=== PATIENT | male | born 1965 | race Caucasian/White ===

== ENCOUNTER 2023-04-02 12:29 | Emergency (ER) | payer BC, SELFPAY ==
[2023-04-02] VITALS (8 sets, daily range): BP systolic 134–146; BP diastolic 85–88; PULSE 74–88; RESP 16; TEMP 36.6; O2SAT 96–99; BMI 26.4
--- NOTE | 2023-04-02 13:37 | DI.RAD.S_ITS ---
PROCEDURE: XR CHEST 1V INDICATIONS: Shortness of breath TECHNIQUE: One view of the chest was acquired. COMPARISON: None. FINDINGS: Surgical changes and devices: None. Lungs and pleura: 2.1 centimeter masslike opacity in the left infrahilar lung. No pleural effusions or pneumothorax. Mediastinum: Mediastinal contours appear normal. Heart size is normal. Bones and chest wall: No suspicious bony lesions. Overlying soft tissues appear unremarkable. IMPRESSION: Small focal opacity in the left infrahilar lung which could represent pneumonia or neoplastic process. Recommend follow-up chest x-ray in 30 days following appropriate therapy for pneumonia to exclude malignancy. Dictated by: Nida Pratt MD, PhD on 04/02/2023 at 13:51 Approved by: Nida Pratt MD, PhD on 04/02/2023 at 13:53
[2023-04-02 14:15] LABS: Add Manual Diff / Slide Review NO; Basophils Absolute Auto 100 /uL (0-100); Basophils Percent Auto 0.9 % (0-2); Eosinophils Absolute Auto 300 /uL (0-450); Eosinophils Percent Auto 2.9 % (2-4); Hematocrit 38.2 % (41-53); Hemoglobin 12.9 g/dL (13.5-17.5); Lymphocytes Absolute Auto 2500 /uL (1100-4500); Lymphocytes Percent Auto 25.6 % (25-40); Mean Corpuscular HGB Conc 33.7 % (30-36); Mean Corpuscular Hemoglobin 28.6 PG (26-34); Monocytes Absolute Auto 1200 /uL (0-900); Monocytes Percent Auto 12.1 % (3-14); Neutrophils Absolute Auto 5600 /uL (1500-7000); Neutrophils Percent Auto 58.5 % (50-75); Platelet Count 360 X10^3/uL (150-400); White Blood Cell Count 9.6 X10^3/uL (4.5-11.0)
[2023-04-02 14:25] LABS: INR 1.2 (0.9-1.3); Prothrombin Time 13.9 SECONDS (10.1-12.7)
[2023-04-02 14:26] LABS: D Dimer 657 ng/ml (<500)
[2023-04-02 14:29] LABS: Alanine Aminotransferase 34 IU/L (<50); Alkaline Phosphatase 65 U/L (38-126); Aspartate Aminotransferase 43 IU/L (17-59); BUN Creatinine Ratio 17.4 (6-22); Bilirubin Total 0.5 mg/dL (0.2-1.3); Blood Urea Nitrogen 12 mg/dL (9-20); Calcium 8.8 mg/dL (8.4-10.2); Carbon Dioxide 23 mmol/L (22-32); Chloride 104 mmol/L (98-107); Estimated Glomerular Filt Rate > 60 mL/min (>60); Globulin 4.2 g/dL (1.7-4.1); Glucose 110 mg/dL (70-100); Potassium 4.3 mmol/L (3.4-5.1); Sodium 134 mmol/L (137-145); Total Protein 8.2 g/dL (6.3-8.2)
[2023-04-02 14:31] LABS: HEMOLYSIS 79 (0-50)
[2023-04-02 14:41] LABS: NT-proBNP (BNP-Adult 18+) 89 pg/mL (<125); Troponin I < 0.012 ng/mL (0.01-0.034)
--- NOTE | 2023-04-02 16:44 | ED_ITS ---
HPI - SOB/Dyspnea General Chief Complaint: Shortness of Breath/Dyspnea Stated Complaint: [facility]CT [facility]/SINUS INFEC Time Seen by Provider: 04/02/23 16:34 Source: patient Mode of arrival: Ambulatory Limitations: no limitations History of Present Illness HPI Narrative: Patient here for shortness of breath coughing fever chills aches sinus pressure for the past 5 weeks. Patient seen by a clinic on [place] and had x-ray done and recommended have follow up CT of the chest. Patient was placed on 3 da ys Levaquin without relief. Patient has significant history of sinus disease, he is from [place], has had procedures done by ENT back home. He has been here for 5 weeks. He is getting ready to go home to follow up with his ENT. Patient in no distress. Related Data Previous Rx's Medication Instructions Recorded methylprednisolone 4 mg tablets in See Rx Instructions PO .COMPLEX 04/02/23 a dose pack (Medrol (Jeff)) #21 ea Allergies Allergy/AdvReac Type Severity Reaction Status Date / Time No Known Drug Allergies Allergy Verified 04/02/23 13:28 Review of Systems Review of Systems Narrative: GENERAL: Positive chills, negative fatigue, malaise, positive fever, sweats. HEENT: Positive sinus pain, negative ear pain, sore throat RESPIRATORY: Positive dyspnea, cough CARDIOVASCULAR: negative chest pain, palpitations GASTROINTESTINAL: negative nausea, vomiting, abdominal pain : negative dysuria, frequency, hematuria MUSCULOSKELETAL: negative muscle or bony pain SKIN: negative rash, skin lesions NEUROLOGIC: negative weakness, numbness ROS Unobtainable: All systems reviewed & are unremarkable except as noted in HPI and below Patient History Social History Smoking Status: Never smoker Smoking Status: Never smoker alcohol intake frequency: holidays/special occasions only Substance Use Type: does not use Exam Narrative Exam Narrative: GENERAL: in no distress, not toxic not dyspneic HEAD: Normocephalic. EYES: Pupils equal round ENT: Mucous membranes moist. Mild tenderness to bilateral maxillary sinuses NECK: Trachea midline. CARDIOVASCULAR: Regular rate and rhythm without murmurs RESPIRATORY: Clear to auscultation. Breath sounds equal bilaterally. No wheezes, rales, or rhonchi. GASTROINTESTINAL: Abdomen soft, non-tender EXTREMITIES: No gross deformities. BACK: No flank tenderness. NEURO: AOx4. SKIN: Warm and dry PSYCH: Not anxious, is cooperative Initial Vital Signs Initial Vital Signs: Vital Signs Temperature 98 F 04/02/23 13:28 Pulse Rate 88 04/02/23 13:28 Respiratory Rate 16 04/02/23 13:28 Blood Pressure 146/85 H 04/02/23 13:28 Pulse Oximetry 98 04/02/23 13:28 Oxygen Delivery Method Room Air 04/02/23 13:28 Course Orders Ordered: Discontinued Medications Albuterol (Albuterol 2.5 Mg/3 Ml Neb (Adult)) 2.5 mg INH NOW ONE Stop: 04/02/23 17:52 Last Admin: 04/02/23 17:58 Dose: 2.5 mg Documented By: STEFANY Sodium Chloride (Normal Saline 0.9%) 500 mls @ 1,000 mls/hr IV BOLUS ONE Stop: 04/02/23 17:12 Last Infusion: 04/02/23 17:33 Dose: 0 mls/hr Documented By: Admin: 04/02/23 17:00 Dose: 1,000 mls/hr Documented By: DEBBY Methylprednisolone (Methylprednisolone 125 Mg/2 Ml Vial) 125 mg IV NOW ONE Stop: 04/02/23 17:59 Last Admin: 04/02/23 18:21 Dose: 125 mg Documented By: BHUMIKA Vital Signs Vital signs: Vital Signs - 8 hr 04/02/23 13:28 04/02/23 16:59 04/02/23 17:00 Temperature 98 F Pulse Rate 88 76 76 Respiratory Rate 16 Blood Pressure 146/85 H Pulse Oximetry 98 98 99 Oxygen Delivery Method Room Air 04/02/23 17:30 Temperature Pulse Rate 75 Respiratory Rate Blood Pressure 134/88 Pulse Oximetry 97 Oxygen Delivery Method MDM - SOB/Dyspnea Lab Data 04/02/23 14:00 04/02/23 14:00 Labs: Lab Results 04/02/23 04/02/23 04/02/23 Range/Units 14:00 14:00 14:00 WBC 9.6 (4.5-11.0) X10^3/uL RBC 4.50 (4.5-5.9) X10^6/uL Hgb 12.9 L (13.5-17.5) g/dL Hct 38.2 L (41-53) % MCV 85.0 (80-100) fL MCH 28.6 (26-34) PG MCHC 33.7 (30-36) % RDW 13.0 (11.6-14.8) % Plt Count 360 (150-400) X10^3/uL Neut % (Auto) 58.5 (50-75) % Lymph % (Auto) 25.6 (25-40) % Rowan % (Auto) 12.1 (3-14) % Eos % (Auto) 2.9 (2-4) % Baso % (Auto) 0.9 (0-2) % Neut # (Auto) 5600 (6472-5139) /uL Lymph # (Auto) 2500 (4073-3467) /uL Rowan # (Auto) 1200 H (0-900) /uL Eos # (Auto) 300 (0-450) /uL Baso # (Auto) 100 (0-100) /uL PT 13.9 H (10.1-12.7) SECONDS INR 1.2 (0.9-1.3) D-Dimer 657 H (<500) ng/ml Sodium 134 L (137-145) mmol/L Potassium 4.3 (3.4-5.1) mmol/L Chloride 104 (98-107) mmol/L Carbon Dioxide 23 (22-32) mmol/L BUN 12 (9-20) mg/dL Creatinine 0.69 (0.66-1.25) mg/dL Estimated GFR > 60 (>60) mL/min BUN/Creatinine Ratio 17.4 (6-22) Glucose 110 H (70-100) mg/dL Lactate (0.7-2.1) mmol/L Calcium 8.8 (8.4-10.2) mg/dL Total Bilirubin 0.5 (0.2-1.3) mg/dL AST 43 (17-59) IU/L ALT 34 (<50) IU/L Alkaline Phosphatase 65 (38-126) U/L Troponin I < 0.012 (0.01-0.034) ng/mL NT-Pro-B Natriuret Pep 89 (<125) pg/mL Total Protein 8.2 (6.3-8.2) g/dL Albumin 4.0 (3.5-5.0) g/dL Globulin 4.2 H (1.7-4.1) g/dL Albumin/Globulin Ratio 1.0 (1.0-2.8) Chlamy pneumoniae PCR (Not Detect) Adenovirus (PCR) (Not Detect) B. pertussis DNA (PCR) (Not Detecte) B.parapertussis DNA PCR (Not Detecte) Coronavirus OC43 (PCR) (Not Detect) Coronavirus HKU1 (PCR) (Not Detect) Coronavirus 229E (PCR) (Not Detect) SARS-CoV-2 (PCR) (Not Detecte) Coronavirus NL63 (PCR) (Not Detect) Human Metapneumovir PCR (Not Detect) Influenza Type A (PCR) (Not Detect) Influenza Type B (PCR) (Not Detect) M. pneumoniae (PCR) (Not Detect) Parainfluenza 1 (PCR) (Not Detect) Parainfluenza 2 (PCR) (Not Detect) Parainfluenza 3 (PCR) (Not Detect) Parainfluenza 4 (PCR) (Not Detect) RSV (PCR) (Not Detect) Entero/Rhino (PCR) (Not Detect) 04/02/23 04/02/23 Range/Units 14:00 17:02 WBC (4.5-11.0) X10^3/uL RBC (4.5-5.9) X10^6/uL Hgb (13.5-17.5) g/dL Hct (41-53) % MCV (80-100) fL MCH (26-34) PG MCHC (30-36) % RDW (11.6-14.8) % Plt Count (150-400) X10^3/uL Neut % (Auto) (50-75) % Lymph % (Auto) (25-40) % Rowan % (Auto) (3-14) % Eos % (Auto) (2-4) % Baso % (Auto) (0-2) % Neut # (Auto) (4574-5345) /uL Lymph # (Auto) (8186-3148) /uL Rowan # (Auto) (0-900) /uL Eos # (Auto) (0-450) /uL Baso # (Auto) (0-100) /uL PT (10.1-12.7) SECONDS INR (0.9-1.3) D-Dimer (<500) ng/ml Sodium (137-145) mmol/L Potassium (3.4-5.1) mmol/L Chloride (98-107) mmol/L Carbon Dioxide (22-32) mmol/L BUN (9-20) mg/dL Creatinine (0.66-1.25) mg/dL Estimated GFR (>60) mL/min BUN/Creatinine Ratio (6-22) Glucose (70-100) mg/dL Lactate 1.0 (0.7-2.1) mmol/L Calcium (8.4-10.2) mg/dL Total Bilirubin (0.2-1.3) mg/dL AST (17-59) IU/L ALT (<50) IU/L Alkaline Phosphatase (38-126) U/L Troponin I (0.01-0.034) ng/mL NT-Pro-B Natriuret Pep (<125) pg/mL Total Protein (6.3-8.2) g/dL Albumin (3.5-5.0) g/dL Globulin (1.7-4.1) g/dL Albumin/Globulin Ratio (1.0-2.8) Chlamy pneumoniae PCR Not detected (Not Detect) Adenovirus (PCR) Not detected (Not Detect) B. pertussis DNA (PCR) Not detected (Not Detecte) B.parapertussis DNA PCR Not detected (Not Detecte) Coronavirus OC43 (PCR) Not detected (Not Detect) Coronavirus HKU1 (PCR) Not detected (Not Detect) Coronavirus 229E (PCR) Not detected (Not Detect) SARS-CoV-2 (PCR) Not detected (Not Detecte) Coronavirus NL63 (PCR) Not detected (Not Detect) Human Metapneumovir PCR Not detected (Not Detect) Influenza Type A (PCR) Not detected (Not Detect) Influenza Type B (PCR) Not detected (Not Detect) M. pneumoniae (PCR) Not detected (Not Detect) Parainfluenza 1 (PCR) Not detected (Not Detect) Parainfluenza 2 (PCR) Not detected (Not Detect) Parainfluenza 3 (PCR) Not detected (Not Detect) Parainfluenza 4 (PCR) Not detected (Not Detect) RSV (PCR) Not detected (Not Detect) Entero/Rhino (PCR) Not detected (Not Detect) Imaging Data Chest x-ray: Radiologist's Impression: [address] [address] XRay Report Signed Patient: MAX MOCTEZUMA MR#: [id number] : 1965 Acct:[id number] Age/Sex: 57 / M Date of Service: 04/02/23 Loc: ED Accession Number: [id number] ?? Procedure: XR chest 1V Ordering Provider: Adair Alicea MD PROCEDURE:? XR CHEST 1V ? INDICATIONS:? Shortness of breath ? TECHNIQUE:? One view of the chest was acquired.? ? COMPARISON:? None. ? FINDINGS:? ? Surgical changes and devices:? None.? ? Lungs and pleura:? 2.1 centimeter masslike opacity in the left infrahilar lung.? No pleural effusions or pneumothorax.? ? Mediastinum:? Mediastinal contours appear normal.? Heart size is normal.? ? Bones and chest wall:? No suspicious bony lesions.? Overlying soft tissues appear unremarkable.? ? IMPRESSION:? Small focal opacity in the left infrahilar lung which could represent pneumonia or neoplastic process.? Recommend follow-up chest x-ray in 30 days following appropriate therapy for pneumonia to exclude malignancy. ? ? Dictated by: Nida Pratt MD, PhD on 04/02/2023 at 13:51 ? ? Approved by: Nida Pratt MD, PhD on 04/02/2023 at 13:53 ? CT scan - chest: Radiologist's Impression: [address] [address] [address] Scan Report Signed Patient: MAX MOCTEZUMA MR#: [id number] : 1965 Acct:[id number] Age/Sex: 57 / M Date of Service: 04/02/23 Loc: ED Accession Number: [id number] ?? Procedure: CT angio chest PE protocol Ordering Provider: Adair Alicea MD PROCEDURE:? CT ANGIO CHEST PE PROTOCOL ? INDICATIONS:? Short of breath ? TECHNIQUE:? After the administration of intravenous contrast, 2 mm thick sections acquired from the pulmonary apices to the posterior costophrenic angles.? 3-dimensional maximum intensity projection (MIP) coronal and sagittal reformats were then acquired through the thorax.? For radiation dose reduction, the following was used:? automated exposure control, adjustment of mA and/or kV according to patient size.? ? COMPARISON:? [facility], CR, XR CHEST 1V, 04/02/2023, 13:38. ? FINDINGS:? Image quality:? Excellent.? ? Pulmonary arteries:? Pulmonary arteries are normal in size, and demonstrate no intraluminal filling defects to suggest central pulmonary embolism.? ? Lungs and pleura:? Scattered foci abnormal poorly defined opacity can be seen, which are worst within the left perihilar region.? There is a focal subpleural nodule seen within the superior segment the right lower lobe, as on series 5, image 102, measuring 6 mm. ? No pneumothorax or pleural effusion can be seen.? ? Mediastinum:? Heart size is normal, without pericardial effusion.? Enlarged left perihilar lymph nodes are seen, with the largest measuring 2.7 x 2.1 cm.? Mildly enlarged right perihilar lymph nodes are also seen.? There is a subcarinal lymph node seen measuring 2.1 x 1.5 cm.? Thoracic aorta is normal in caliber and enhancement.? Esophagus is normal in caliber, without hiatal hernia.? ? Bones and chest wall:? No suspicious bony lesions.? Ribs and thoracic spine appear intact throughout.? Age-appropriate bony degenerative changes are seen.? Thyroid gland demonstrates no significant abnormality.? No axillary or supraclavicular adenopathy.? ? Abdomen:? Visualized upper abdominal solid organs appear normal in the early arterial phase of enhancement.? IMPRESSION:? Negative for pulmonary embolism. ? Abnormally enlarged mediastinal lymph nodes are seen, which are suspicious for metastatic disease, although reactive lymph nodes are possible. ? Poorly defined opacity seen within the lungs, which is worst within the left perihilar region.? Differential diagnosis includes neoplasm and infectious or inflammatory change. ? There is a 6 mm subpleural right lower lobe nodule seen within the superior segment. ? Please consider a dedicated PET-CT for further evaluation. ? ? Dictated by: Steve Urbina M.D. on 04/02/2023 at 16:22 ? ? Approved by: Steve Urbina M.D. on 04/02/2023 at 16:25 ? MDM Narrative Medical decision making narrative: Patient here for shortness of breath coughing fever chills aches sinus pressure for the past 5 weeks. Patient seen by a clinic on [place] and had x-ray done and recommended have follow up CT of the chest. Patient was placed on 3 days Levaquin without relief. Patient has significant history of sinus disease, he is from [place], has had procedures done by ENT back home. He has been here for 5 weeks. He is getting ready to go home to follow up with his ENT. Patient in no distress. After history and exam CBC CMP BNP troponin chest x-ray CT chest EKG viral swab [facility] CC: Complicating co-morbidities: Data collected from: Medical records reviewed: Differential considered: Includes but not limited to Exam documented above, pertinent findings include: Lab Test results independently reviewed as above. Pertinent findings: WBC 9.6 hemoglobin 12.9 INR 1.2 chemistries show sodium 134 potassium 4.3 troponin less than 0.012 BNP 89 Independently reviewed EKG normal EKG normal sinus rhythm rate 79 Imaging studies independently reviewed: Chest x-ray no acute finding CT chest negative for pulmonary embolism. Abnormally enlarged mediastinal lymph nodes are seen which are suspicious for metastatic disease although reactive lymph nodes are possible. Poorly defined opacity seen within the lungs which is worse within the left perihilar region differential diagnosis includes neoplasm infectious or inflammatory change. Consultations: None indicated Treatments: Normal saline, Solu-Medrol Re-evaluations: Reviewed results with patient. At this time they are reassuring other than CT imaging that when reviewed on patient's cell phone his reported from CT imaging from [place] does show mediastinal nodules. Patient does understand needs to follow up with primary care next week when he returns home to [place] for PET scan and colonoscopy. There is no family history of cancer. Patient states has been a long time since his last colonoscopy. Regarding sinuses no antibiotics indicated this time, he has been on Levaquin, n o relief, no fever here, white cell count is normal. He does agree to try Medrol Dosepak to help for alleviate pressure in the sinuses. Return precautions reviewed with him. He desires discharge home. He does not want to wait for viral swab results. Patient has been Augmentin amoxicillin and Le vaquin for his sinuses without improvement. This is been in the last 5 weeks. Discussion: Appropriate for discharge home. Patient does have primary care back in [place]. He will continue steroid pack he does not want to continue any antibiotics as this is not improved his symptoms with 3 different antibiotics in the past 5 weeks. I did talk to him concern about neoplastic process and he will get a PET scan when he gets back home and colonoscopy. Nontoxic at discharge. He desires discharge home Diagnosis: Sinusitis/upper respiratory infection Discharge Plan Departure Patient Disposition: Home Clinical Impression: Sinusitis, Acute upper respiratory infection Instructions: DI for Sinusitis Activity Restrictions/Additional Instructions: Please continue steroid pack tomorrow. Please see your family doctor next week when you return home to schedule PET scan for concerning findings on CT scan of your lungs today and is scheduled for colonoscopy. CT scan today indicates to consider cancer process. No antibiotics are indicated this time as you have had 3 different antibiotics without relief. Return if worse if any questions or concerns Prescriptions: New methylprednisolone [Medrol (Jeff)] 4 mg tablets,dose pack See Rx Instructions .ROUTE .COMPLEX Qty: 21 0RF Rx Instructions: orally per package directions Stand Alone Forms: Patient Portal/API
--- NOTE | 2023-04-02 16:49 | DI.CT.S_ITS ---
PROCEDURE: CT ANGIO CHEST PE PROTOCOL INDICATIONS: Short of breath TECHNIQUE: After the administration of intravenous contrast, 2 mm thick sections acquired from the pulmonary apices to the posterior costophrenic angles. 3-dimensional maximum intensity projection (MIP) coronal and sagittal reformats were then acquired through the thorax. For radiation dose reduction, the following was used: automated exposure control, adjustment of mA and/or kV according to patient size. COMPARISON: [facility], CR, XR CHEST 1V, 04/02/2023, 13:38. FINDINGS: Image quality: Excellent. Pulmonary arteries: Pulmonary arteries are normal in size, and demonstrate no intraluminal filling defects to suggest central pulmonary embolism. Lungs and pleura: Scattered foci abnormal poorly defined opacity can be seen, which are worst within the left perihilar region. There is a focal subpleural nodule seen within the superior segment the right lower lobe, as on series 5, image 102, measuring 6 mm. No pneumothorax or pleural effusion can be seen. Mediastinum: Heart size is normal, without pericardial effusion. Enlarged left perihilar lymph nodes are seen, with the largest measuring 2.7 x 2.1 cm. Mildly enlarged right perihilar lymph nodes are also seen. There is a subcarinal lymph node seen measuring 2.1 x 1.5 cm. Thoracic aorta is normal in caliber and enhancement. Esophagus is normal in caliber, without hiatal hernia. Bones and chest wall: No suspicious bony lesions. Ribs and thoracic spine appear intact throughout. Age-appropriate bony degenerative changes are seen. Thyroid gland demonstrates no significant abnormality. No axillary or supraclavicular adenopathy. Abdomen: Visualized upper abdominal solid organs appear normal in the early arterial phase of enhancement. IMPRESSION: Negative for pulmonary embolism. Abnormally enlarged mediastinal lymph nodes are seen, which are suspicious for metastatic disease, although reactive lymph nodes are possible. Poorly defined opacity seen within the lungs, which is worst within the left perihilar region. Differential diagnosis includes neoplasm and infectious or inflammatory change. There is a 6 mm subpleural right lower lobe nodule seen within the superior segment. Please consider a dedicated PET-CT for further evaluation. Dictated by: Steve Urbina M.D. on 04/02/2023 at 16:22 Approved by: Steve Urbina M.D. on 04/02/2023 at 16:25
[2023-04-02] MEDS: SODIUM CHLORIDE 0.9% 500 ML 1000 ML IV (17:00)
[2023-04-02] MEDS: ALBUTEROL 2.5 MG/3 ML NEB (ADULT) INH (17:58)
[2023-04-02 18:03] LABS: Adenovirus Not Detected (Not Detect); B. parapertussis Not Detected (Not Detecte); Bordetella pertussis Not Detected (Not Detecte); Chlamydophila pneumoniae Not Detected (Not Detect); Coronavirus 229E Not Detected (Not Detect); Coronavirus HKU1 Not Detected (Not Detect); Coronavirus NL 63 Not Detected (Not Detect); Coronavirus OC43 Not Detected (Not Detect); Human Metapneumovirus Not Detected (Not Detect); Human Rhinovirus/Enterovirus Not Detected (Not Detect); Influenza A Not Detected (Not Detect); Influenza B Not Detected (Not Detect); Mycoplasma pneumoniae Not Detected (Not Detect); Parainfluenza Virus 1 Not Detected (Not Detect); Parainfluenza Virus 2 Not Detected (Not Detect); Parainfluenza Virus 3 Not Detected (Not Detect); Parainfluenza Virus 4 Not Detected (Not Detect); Respiratory Syncytial Virus Not Detected (Not Detect); SARS- CoV-2 Not Detected (Not Detecte)
[2023-04-02] MEDS: methylPREDNISolone 125 MG/2 ML VIAL IV (18:21)
== END 2023-04-02 18:32 | disposition home or self-care (01) ==
PROVIDERS: Emergency Provider Emergency Medicine
DX: J32.9 Chronic sinusitis, unspecified (principal); J06.9 Acute upper respiratory infection, unspecified; Z20.822 Contact with and (suspected) exposure to COVID-19
CPT/HCPCS: 36415; 71045; 71275; 80053; 83605; 83880; 84484; 85025; 85379; 85610; 87633; 93005; 94640; 96361; 96374; 99284; J2930; J7613

== ENCOUNTER 2024-04-06 12:13 | Emergency (ER) | payer BC, SELFPAY ==
[2024-04-06] VITALS (7 sets, daily range): BP systolic 128–151; BP diastolic 75–78; PULSE 74–76; RESP 18; TEMP 36.7–36.8; O2SAT 95–96; BMI 26.2
[2024-04-06] MEDS: predniSONE 20 MG TABLET 60 MG PO (12:30)
[2024-04-06] MEDS: diphenhydrAMINE 25 MG TABLET 50 MG PO (12:30)
--- NOTE | 2024-04-06 13:34 | ED_ITS ---
HPI - Allergic Reaction General Chief complaint: Allergic Reaction Stated complaint: allergic reaction to allergy shot he got 1 hour ag Time Seen by Provider: 04/06/24 12:20 Mode of arrival: Ambulatory History of Present Illness HPI narrative: 58-year-old gentleman with a history seasonal allergies had a routine allergy shot today with the usual dose all usual preparation sat for half an hour after the injection was doing well until he began to drive home when he noticed increased tightness in his chest and facial swelling comes into the ER for further evaluation after being directed here from the walk-in clinic. He states that he has had reactions to his allergy injections in the past but none recently. He notes that you did take a Claritin D earlier this morning. Main complaints are slight wheeze, chest tightness periorbital swelling. He is able to speak in full sentences and drove himself to the ER. Related Data Previous Rx's Medication Instructions Recorded methylprednisolone 4 mg tablets in See Rx Instructions PO .COMPLEX 04/02/23 a dose pack (Medrol (Jeff)) #21 ea methylprednisolone 4 mg tablets in See Rx Instructions PO .COMPLEX 04/06/24 a dose pack (Medrol (Jeff)) #21 ea Allergies Allergy/AdvReac Type Severity Reaction Status Date / Time No Known Drug Allergies Allergy Verified 04/02/23 13:28 Review of Systems Review of Systems Narrative: Pertinent positive and negative findings as per HPI Patient History Social History Smoking Status: Never smoker Smoking Status: Never smoker alcohol intake frequency: 0-2 drinks per day Substance Use Type: does not use Exam Initial Vital Signs Initial Vital Signs: Vital Signs Temperature 98.1 F 04/06/24 12:16 Pulse Rate 74 04/06/24 12:16 Respiratory Rate 18 04/06/24 12:16 Blood Pressure 151/78 H 04/06/24 12:16 Pulse Oximetry 95 04/06/24 12:16 Oxygen Delivery Method Room Air 04/06/24 12:16 General: Healthy appearing, facial edema and periorbital swelling, slight wheeze but able to speak in complete sentences HEENT: Moist mucous membranes, minor scleral edema right greater than left pupils are reactive, lips and tongue are not swollen Respiratory: Lungs with minor wheeze but full and symmetrical air movement. Cardiac: Regular rate and rhythm no murmurs no bruits Abdomen: Soft, nontender, good bowel tones, no flank pain Skin: Warm and dry, slightly flushed face Neurologic: Grossly neurologically intact with no obvious asymmetries or abnormalities Extremities: No trauma, well perfused Psych: Cooperative, appropriate insight and affect Course Orders Ordered: Discontinued Medications Diphenhydramine HCl (Diphenhydramine 25 Mg Tablet) 50 mg PO NOW ONE Stop: 04/06/24 12:26 Last Admin: 04/06/24 12:30 Dose: 50 mg Documented By: ELENA Prednisone (Prednisone 20 Mg Tablet) 60 mg PO NOW ONE Stop: 04/06/24 12:26 Last Admin: 04/06/24 12:30 Dose: 60 mg Documented By: ELENA Vital Signs Vital signs: Vital Signs - 8 hr 04/06/24 12:16 04/06/24 12:17 04/06/24 12:18 Temperature 98.1 F Pulse Rate 74 76 Respiratory Rate 18 Blood Pressure 151/78 H 151/78 H Pulse Oximetry 95 95 Oxygen Delivery Method Room Air 04/06/24 12:18 04/06/24 12:30 04/06/24 12:30 Temperature Pulse Rate 76 76 Respiratory Rate Blood Pressure 129/75 Pulse Oximetry 96 96 Oxygen Delivery Method 04/06/24 12:59 04/06/24 13:00 Temperature Pulse Rate 76 Respiratory Rate Blood Pressure 128/77 Pulse Oximetry 96 Oxygen Delivery Method MDM - Allergic Reaction MDM Narrative Medical decision making narrative: CC: Allergic reaction Complicating co-morbidities: Seasonal allergies, patient just received 1 of his seasonal allergy injections at his physician's office Data collected from: patient Differential considered: Mild allergic reaction, anaphylaxis Exam documented above, pertinent findings include: Periorbital edema, no lip or tongue swelling, mild scattered wheeze, no respiratory distress, able to speak in full sentences and cognitively appropriate Treatments: p.o. prednisone, p.o. Benadryl Discussion: Patient was already beginning to improve on arrival in the ER. The wheezing was audibly improving. With shared decision-making we opted to try oral prednisone and Benadryl prior to any IV treatment. At an hour his left eye is almost entirely normal, right eye still has some mild swelling, no wheezing and he is feeling significantly improved. Believe this was a reaction to his allergy shots, unsure why with the same dosing it would have been so pronounced this time. Have given a prescription for a Medrol Dosepak and encouraged him to make sure that has been Advil on hand if needed and use his Claritin daily as he has been scheduled. We will ask him to follow up with his recording engineer as per previous schedule. At this point I believe he is safe for discharge Discharge Plan Departure Patient Disposition: Home Clinical Impression: Allergic reaction Qualifiers: Encounter type: initial encounter Qualified Code(s): T78.40XA - Allergy, unspecified, initial encounter Instructions: DI for Adverse Drug Reaction -- Allergic Activity Restrictions/Additional Instructions: Thank you for coming in today I do not have an explanation for why you had so much of a reaction to your allergy shot today versus other days. You did seem to be in proving even as you were seen in the emergency department. You were given oral prednisone and Benadryl. I have given you a prescription for a Medrol Dosepak to take over the next couple of days to make sure that the reaction does not recur as the prednisone wears off. I would recommend Claritin that you are already taking. I would also recommending having Benadryl on hand if symptoms do worsen. Please review today's visit with your recording engineer to come up with a reasonable plan for how to best manage your next allergy injection If you find that you are getting worse or develop any new symptoms, please feel free to return to the emergency department for further evaluation. Prescriptions: New methylprednisolone [Medrol (Jeff)] 4 mg tablets,dose pack See Rx Instructions .ROUTE .COMPLEX Qty: 21 0RF Rx Instructions: for 6 days No Action methylprednisolone [Medrol (Jeff)] 4 mg tablets,dose pack See Rx Instructions .ROUTE .COMPLEX Qty: 21 0RF Rx Instructions: orally per package directions Referrals: Miscellaneous,Doctor, MD [Primary Care Provider] - Stand Alone Forms: Patient Portal/API
== END 2024-04-06 14:11 | disposition home or self-care (01) ==
PROVIDERS: Emergency Provider Emergency Medicine
DX: T78.40XA Allergy, unspecified, initial encounter (principal); X58.XXXA Exposure to other specified factors, initial encounter
CPT/HCPCS: 99283